=== PATIENT | male | born 1985 | race Caucasian/White ===

== ENCOUNTER 2024-05-23 18:30 | Emergency (ER) | payer SELFPAY ==
[~2024-05-23] VITALS: Ht 175.3 cm; Wt 121.2 kg
[2024-05-23 19:08] VITALS: BP 147/100; PULSE 96; RESP 18; TEMP 97.8; O2SAT 99
[2024-05-23] MEDS: predniSONE 20 MG TAB PO ONE (20:01)
[2024-05-23] MEDS: FAMOTIDINE 20 MG TAB PO ONE (20:01)
[2024-05-23] MEDS ORDERED: CEPH500C16 PO (20:45)
[2024-05-23] MEDS ORDERED: BEN50 PO (20:45)
[2024-05-23] MEDS ORDERED: PRED20TA5 PO (20:45)
[2024-05-23 20:54] VITALS: BP 147/100; PULSE 96; RESP 18; TEMP 97.8; O2SAT 99
== END 2024-05-23 20:54 | disposition home or self-care (01) ==
LOC: MED 18:30
DX: A46 Erysipelas (principal); Z79.899 Other long term (current) drug therapy
CPT/HCPCS: 99284; J7512; Q0163